=== PATIENT | female | born 1945 | race Caucasian/White ===

== ENCOUNTER → 2016-10-21 | Outpatient (CLI) | payer OTHER ==
[~2016-10-21] MED LIST: CALC600T9 PO; CHLO4LIQ TOP; GLC5 PO; LSN20 PO; METF-383 PO; MUPIOIN4 TOP
[2016-10-21 13:32] LABS: ESTIMATED AVERAGE GLUCOSE 174 mg/dl; HA1C FLAG Normal (Normal)
[2016-10-21 13:39] LABS: BLOOD UREA NITROGEN 16 mg/dl (7-18); BUN/CREATININE RATIO 20.2 (10-20); CALCIUM 9.6 mg/dl (8.5-10.1); CARBON DIOXIDE 25 mmol/L (21-32); CHLORIDE 106 mmol/L (98-107); CREATININE 0.81 mg/dl (0.60-1.20); GLUCOSE 121 mg/dl (70-99); PHOSPHORUS 3.9 mg/dl (2.5-4.9); POTASSIUM 4.8 mmol/L (3.5-5.1); SODIUM 141 mmol/L (136-145)
== END | disposition home or self-care (01) ==
LOC: C.LABMFLN 13:49
PROVIDERS: ATTEND Family Medicine
DX: E11.9 Type 2 diabetes mellitus without complications (principal)

== ENCOUNTER → 2017-03-24 | Outpatient (CLI) | payer OTHER ==
[2017-03-24 13:17] LABS: BASO % 0.4 %; BASO ABS # 0.02 K/uL (0-0.2); COMPLETE YES; EOS % 4.1 %; HEMATOCRIT 38.1 % (37-47); IG% 0.2 %; LYMPH % 34.8 %; LYMPH ABS # 1.87 K/uL (1.2-3.4); MEAN CELL VOLUME 95.3 fL (80-100); MEAN CORPUSCULAR HEMOGLOBIN 30.8 pg (25-34); MEAN CORPUSCULAR HGB CONC 32.3 g/dl (32-36); MEAN PLATELET VOLUME 9.7 fL (7.4-10.4); MONO % 8.2 %; NEUT % 52.3 %; PLATELET COUNT 145 K/uL (130-400); WHITE BLOOD COUNT 5.37 K/uL (4.8-10.8)
[2017-03-24 13:41] LABS: ALT/SGPT 39 U/L (12-78); BLOOD UREA NITROGEN 25 mg/dl (7-18); BUN/CREATININE RATIO 28.8 (10-20); CALCIUM 9.9 mg/dl (8.5-10.1); CARBON DIOXIDE 28 mmol/L (21-32); CHLORIDE 106 mmol/L (98-107); CREATININE 0.88 mg/dl (0.60-1.20); GLUCOSE 61 mg/dl (70-99); POTASSIUM 5.1 mmol/L (3.5-5.1); SODIUM 140 mmol/L (136-145)
[2017-03-24 13:43] LABS: ALB/GLOB RATIO 0.9 (0.9-2); ALKALINE PHOSPHATASE 44 U/L (45-117); AST/SGOT 35 U/L (15-37)
[2017-03-24 14:00] LABS: ESTIMATED AVERAGE GLUCOSE 143 mg/dl; HA1C FLAG Normal (Normal)
== END | disposition home or self-care (01) ==
LOC: C.LABMFLN 10:53
PROVIDERS: ATTEND Family Medicine
DX: E11.9 Type 2 diabetes mellitus without complications (principal)

== ENCOUNTER → 2017-06-30 | Outpatient (CLI) | payer OTHER ==
[2017-06-30 18:13] LABS: BLOOD UREA NITROGEN 20 mg/dl (7-18); BUN/CREATININE RATIO 20.1 (10-20); CALCIUM 9.8 mg/dl (8.5-10.1); CARBON DIOXIDE 27 mmol/L (21-32); CHLORIDE 108 mmol/L (98-107); CHOLESTEROL 160 mg/dl (0-200); CREATININE 0.99 mg/dl (0.60-1.20); GLUCOSE 95 mg/dl (70-99); SODIUM 140 mmol/L (136-145)
[2017-06-30 18:15] LABS: CHOLESTEROL/HDL RATIO 2.8; HDL CHOLESTEROL 58 mg/dl; LDL CHOLESTEROL CALCULATED 76 mg/dl; PHOSPHORUS 3.5 mg/dl (2.5-4.9); TRIGLYCERIDES 128 mg/dl (0-150); VERY LOW DENSITY LIPOPROT CALC 26 mg/dl
[2017-07-01 06:42] LABS: ESTIMATED AVERAGE GLUCOSE 148 mg/dl; HA1C FLAG Normal (Normal)
== END | disposition home or self-care (01) ==
LOC: C.LABMFLN 11:35
PROVIDERS: ATTEND Family Medicine
DX: E11.9 Type 2 diabetes mellitus without complications (principal); E78.5 Hyperlipidemia, unspecified

== ENCOUNTER → 2017-09-29 | Outpatient (CLI) | payer OTHER ==
[2017-09-29 17:52] LABS: ALBUMIN 3.8 gm/dl (3.4-5.0); BLOOD UREA NITROGEN 23 mg/dl (7-18); CALCIUM 9.8 mg/dl (8.5-10.1); CARBON DIOXIDE 26 mmol/L (21-32); CREATININE 1.05 mg/dl (0.60-1.20); GLUCOSE 135 mg/dl (70-99); POTASSIUM 4.9 mmol/L (3.5-5.1); SODIUM 138 mmol/L (136-145)
[2017-09-29 17:53] LABS: PHOSPHORUS 3.9 mg/dl (2.5-4.9)
[2017-09-30 07:38] LABS: HEMOGLOBIN A1C 7.5 % (4.5-5.6)
== END | disposition home or self-care (01) ==
LOC: C.LABMFLN 11:22
PROVIDERS: ATTEND Family Medicine
DX: E11.9 Type 2 diabetes mellitus without complications (principal)

== ENCOUNTER → 2017-10-17 | Outpatient (CLI) | payer OTHER ==
--- NOTE | 2017-10-19 07:50 | MAMMOGRAPHY REPORT ---
BILATERAL DIGITAL DIAGNOSTIC MAMMOGRAM TOMOSYNTHESIS WITH CAD: 10/17/2017 CLINICAL HISTORY: Annual screening mammogram. Patient has a history of prior benign left breast ster eotactic biopsy. TECHNIQUE: Bilateral breast tomosynthesis in addition to standard 2D mammography was performed. Mani tional 2D exaggerated medial and lateral CC views were performed of each breast to include as much la teral and medial tissue as possible. Current study was also evaluated with a Computer Aided Detectio n (CAD) system. COMPARISON: Comparison is made to exams dated: 07/10/2008, 06/18/2008, 03/28/2007, 09/06/2016 mammogram , and 09/23/2016 mammogram - [facility]. BREAST COMPOSITION: The tissue of both breasts is almost entirely fatty. FINDINGS: There are stable postbiopsy changes in the lower inner left breast, with biopsy marker clip remaining in place. There are scattered benign-appearing calcifications bilaterally. A stable intr amammary lymph node in the left upper outer quadrant. No suspicious mass, architectural distortion o r cluster of microcalcifications is seen. IMPRESSION: ACR BI-RADS CATEGORY 2: BENIGN There is no mammographic evidence of malignancy. A 1 year screening mammogram is recommended. The pa tient has been verbally notified of the results. Approximately 10% of breast cancers are not detected with mammography. A negative mammographic report should not delay biopsy if a clinically suggestive mass is present. Nicole Ambriz M.D. ay/:10/17/2017 14:10:31 Toilet Attendant: Roxana FROST(Carrie)(Eze), [facility] letter sent: Normal 1/2 BI-RADS Code: ACR BI-RADS Category 2: Benign
== END | disposition home or self-care (01) ==
LOC: C.MAMM 13:33
PROVIDERS: ATTEND Family Medicine
DX: Z12.31 Encounter for screening mammogram for malignant neoplasm of breast (principal)

== ENCOUNTER → 2018-02-14 | Outpatient (CLI) | payer OTHER ==
[2018-02-14 19:05] LABS: ALBUMIN 3.8 gm/dl (3.4-5.0); BLOOD UREA NITROGEN 26 mg/dl (7-18); CALCIUM 9.1 mg/dl (8.5-10.1); CARBON DIOXIDE 25 mmol/L (21-32); CREATININE 1.17 mg/dl (0.60-1.20); GLUCOSE 205 mg/dl (70-99); PHOSPHORUS 3.9 mg/dl (2.5-4.9); POTASSIUM 4.7 mmol/L (3.5-5.1); SODIUM 139 mmol/L (136-145)
== END | disposition home or self-care (01) ==
LOC: C.LABMFLN 12:20
PROVIDERS: ATTEND Family Medicine
DX: E87.5 Hyperkalemia (principal); R39.15 Urgency of urination; R35.0 Frequency of micturition

== ENCOUNTER → 2018-02-20 | Outpatient (CLI) | payer OTHER | END | disposition home or self-care (01) | LOC: C.LABMFLN 11:36 | PROVIDERS: ATTEND Family Medicine | DX: R31.29 Other microscopic hematuria (principal) ==